=== PATIENT | male | born 1970 | race Caucasian/White ===

== ENCOUNTER 2024-08-01 18:09 | Emergency (ER) | payer MEDICAID ==
[~2024-08-01] VITALS: Ht 170.2 cm; Wt 70.5 kg
[2024-08-01 18:19] VITALS: BP 116/81; PULSE 111; RESP 16; TEMP 98.6; O2SAT 99
== END 2024-08-01 20:54 | disposition left against medical advice (07) ==
LOC: ER 18:10
DX: Z93.3 Colostomy status (principal)
CPT/HCPCS: 99281; A4421

== ENCOUNTER 2024-09-10 04:47 | Emergency (ER) | payer MEDICAID ==
[~2024-09-10] VITALS: Ht 170.2 cm; Wt 71.6 kg
[2024-09-10 04:52] VITALS: BP 127/75; PULSE 86; RESP 16; TEMP 97.9; O2SAT 98
== END 2024-09-10 05:58 | disposition home or self-care (01) ==
LOC: ER 04:48
DX: Z93.3 Colostomy status (principal); Z43.3 Encounter for attention to colostomy
CPT/HCPCS: 99281; A4421

== ENCOUNTER 2024-09-13 21:17 | Emergency (ER) | payer MEDICAID ==
[~2024-09-13] VITALS: Ht 170.2 cm; Wt 60.4 kg
[2024-09-13 21:26] VITALS: BP 104/75; PULSE 91; RESP 15; TEMP 96.8; O2SAT 100
== END 2024-09-13 22:34 | disposition home or self-care (01) ==
LOC: ER 21:17
DX: Z93.3 Colostomy status (principal)
CPT/HCPCS: 99281

== ENCOUNTER 2024-10-08 12:47 | Emergency (ER) | payer MEDICAID ==
[~2024-10-08] VITALS: Ht 170.2 cm; Wt 68.5 kg
[2024-10-08 13:00] VITALS: BP 127/74; PULSE 75; RESP 18; TEMP 97.8; O2SAT 99
== END 2024-10-08 15:08 | disposition home or self-care (01) ==
LOC: ER 12:48
DX: Z43.3 Encounter for attention to colostomy (principal)
CPT/HCPCS: 99281

== ENCOUNTER 2024-10-14 02:55 | Emergency (ER) | payer MEDICAID ==
[~2024-10-14] VITALS: Ht 170.2 cm; Wt 71.4 kg
[2024-10-14 02:57] VITALS: BP 144/78; PULSE 94; RESP 18; TEMP 98.1; O2SAT 99
--- NOTE | 2024-10-14 03:04 | Physician Documentation ---
History of Present Illness ~ General Chief Complaint: See Chief Complaint Stated Complaint: NEED COLOSTOMY BAG Time Seen by MD: 03:04 Primary Medical Doctor: NONE History of Present Illness Initial Comments 54-year-old male, history of colon cancer status post colostomy and chemo, presenting requesting a new colostomy bag and supplies. He tells me that he reordered supplies, but they did not come yet and now he was in the weekend. His bag is coming off and he tried taping it to hold it on, and states it for the past day he has been literally holding it with his hand to keep the bag from falling off. He finally decided to come here to get supplies. He denies any other symptoms, his colostomy is functioning normal, no abdominal pain or other symptoms. Medication Reconciliation Allergies: Coded Allergies: No Known Allergies (Unverified , 10/14/24) Past Medical History Past Medical History: *GI/HEPATOBILIARY* Past Surgical History: other Review of Systems Constitutional: Denies: fever Gastrointestinal: Denies: abdominal pain Physical Exam Physical Exam Vital Signs: Temperature: 98.1, Source: Oral, Heart Rate: 94, Respiratory Rate: 18, BP: 144/78, Pulse Oximetry: 99, Weight: 71.360 Physical Exam General: This is a pleasant and well-appearing middle-aged man Heart: Mild tachycardic, appears regular Lungs: normal work of breathing, normal oxygen saturation on room air Abdomen: Soft, nondistended, nontender. In the left abdominal wall there is a colostomy with a colostomy bag that appears to be held to the skin with duct tape Psychiatric: Calm and cooperative with exam Progress Results/Orders Results/Orders Vital Signs 10/14/24 02:57 Temp 98.1 Pulse 94 Resp 18 B/P (MAP) 144/78 Pulse Ox 99 Medical Decision Making Assessment The patient presents requesting supplies for his colostomy. He has no other concerning symptoms or findings on exam to warrant any further workup or testing. He was given colostomy supplies and will be discharged. Departure Time of Disposition: 03:13 Disposition: 01 HOME / SELF CARE / HOMELESS Impression: Primary Impression: Colostomy care Condition: Improved Discharge Instructions: Colostomy Home Guide, Adult Referrals: NO PRIMARY CARE PROVIDER (PCP) Education Educated: Patient Educated regarding: need for follow up Signature Scribe Signature: na Attestation: PADMA Rob MD Oct 14, 2024 03:04
[2024-10-15] MEDS ORDERED: GABA-530 PO (05:46)
== END 2024-10-14 03:34 | disposition home or self-care (01) ==
LOC: ER 02:55
DX: Z43.3 Encounter for attention to colostomy (principal); Z85.038 Personal history of other malignant neoplasm of large intestine
CPT/HCPCS: 99281; A4421

== ENCOUNTER 2024-10-15 04:11 | Emergency (ER) | payer MEDICAID ==
[~2024-10-15] VITALS: Ht 170.2 cm; Wt 72.0 kg
--- NOTE | 2024-10-15 05:38 | Physician Documentation ---
History of Present Illness Chief Complaint: Abdominal Pain Stated Complaint: OUT OF COLOSTOMY BAG Time Seen by MD: 05:37 OK to notify your PCP?: Yes Primary Medical Doctor: NONE Source: patient, RN/MD, EMS, RN notes reviewed, EMS notes reviewed, old records Mode of Arrival: EMS Exam Limitations: no limitations HPI 54 year old male with history of diabetes presents to the emergency department via EMS for complaints of colostomy issues. Patient has a present colostomy bag due to a cancer surgery he had performed by Dr. Sainz. He is complaining of pain around his colostomy site. He states that it has a cut and is getting infected. He also stated that his bags keep falling off. Additionally he is complaining of neuropathy. He has not spoken about it to his Dr. Cantu and states he has no primary care provider and is taking no medication. Of note, he was seen here on 10/14/2024 for the same complaints. Medication Reconciliation Allergies: Coded Allergies: No Known Allergies (Unverified , 10/14/24) Scheduled Gabapentin (Gabapentin), 1 CAP PO Q8H Past Medical History Past Medical History: *GI/HEPATOBILIARY* Past Surgical History: other Review of Systems All Other Systems at this time: Reviewed and Negative ROS As stated above in the HPI, otherwise all systems are reviewed and negative. Physical Exam Vital Signs: RN Vital Signs have been reviewed: Yes, Temperature: 98.0, Source: Oral, Heart Rate: 89, Respiratory Rate: 18, BP: 120/87, Pulse Oximetry: 100, Weight: 72.000 Pulse Oximetry Reflects: adequate oxygenation Physical Exam Pe: General: This is a pleasant and well-appearing middle-aged man Heart: Mild tachycardic, appears regular Lungs: normal work of breathing, normal oxygen saturation on room air Abdomen: Soft, nondistended, nontender. In the left abdominal wall there is a colostomy with a colostomy bag that appears to be held to the skin with duct tape Nuero: Tingling of lower extremities Psychiatric: Calm and cooperative with exam Progress Results/Orders Reviewed/noted all lab results: Yes Results/Orders Vital Signs 10/15/24 10/15/24 04:15 04:22 Temp 98.0 Pulse 89 Resp 16 18 B/P (MAP) 120/87 Pulse Ox 100 Re-Evaluation Re-Evaluation : Re-Evaluation: Improved Progress Patient was seen and examined. Patient was given reassurance. The patient has a colorectal surgeon in his scheduled to see him in two months but he has been having problems with his colostomy. Colostomy care was provided. There was no excessive erosions. Around the abdomen. Patient is complaining that he was al so having neuropathy as well. The patient has had gabapentin in the past. He was given additional dose and started. He received a prescription of 100 mg t.i.d. but a loading dose of 400 in the ER. Patient will follow up with his colorectal surgeon. Medical Decision Making Additional info obtained from: old records Differential Dx:Considerations: Include: Hernia, Inflammatory BD, Ischemic bowel, Other Departure Time of Disposition: 05:47 Disposition: HOME / SELF CARE / HOMELESS Impression: Primary Impression: Colostomy care Additional Impression: Neuropathy Condition: Stable Discharge Instructions: Colostomy Home Guide, Adult Referrals: NO PRIMARY CARE PROVIDER (PCP) Prescriptions Gabapentin (Gabapentin) 100 Mg Capsule 1 CAP PO Q8H for 30 Days, #90 CAP 0 Refills Prov: NYDIA DIAZ MD 10/15/24 Education Educated: Patient Educated regarding: diagnosis, need for follow up Signature Scribe Signature: Scribed for Nydia Diaz MD by Caitlyn Cantu . 10/15/24 05:48 Attestation: The note accurately reflects work and decisions made by me.Nydia Diaz MD 10/15/24 05:38 NYDIA DIAZ MD Oct 15, 2024 05:38 CAITLYN LAYTON Oct 15, 2024 05:48
[2024-10-15] MEDS ORDERED: gabapentin 400mg capsule PO STA (05:44)
[2024-10-15] MEDS ORDERED: GABA-530 PO (05:46)
[2024-10-15 06:05] VITALS: BP 130/80; PULSE 78; RESP 16; TEMP 87; O2SAT 100
== END 2024-10-15 06:07 | disposition home or self-care (01) ==
LOC: ER 04:11
DX: Z43.3 Encounter for attention to colostomy (principal); E11.40 Type 2 diabetes mellitus with diabetic neuropathy, unspecified
CPT/HCPCS: 99283; A4371

== ENCOUNTER 2024-10-17 07:33 | Emergency (ER) | payer MEDICAID ==
[~2024-10-17] VITALS: Ht 170.2 cm; Wt 72.7 kg
[~2024-10-17 07:33] MED LIST: GABA-530 PO
[2024-10-17 07:34] VITALS: BP 142/80; PULSE 88; RESP 16; O2SAT 98
--- NOTE | 2024-10-17 07:45 | Physician Documentation ---
HPI ~ General Chief Complaint: Medication Request Stated Complaint: NEEDING COLOSTOMY BAG Time Seen by MD: 07:42 Primary Medical Doctor: NONE History of Present Illness HPI Comments 54-year-old male presenting for a colostomy bag replacement. Patient has history of colon cancer which was treated and a colostomy was placed. He states that he just needs a bag and is trying to get septic scheduled with social security specialist and his primary care provider so he get these bags ordered so he does not have to come to the emergency department every time. No other complaints. Medication Reconciliation Allergies: Coded Allergies: No Known Allergies (Unverified , 10/14/24) Scheduled Gabapentin (Gabapentin), 1 CAP PO Q8H Past Medical History Past Medical History: *GI/HEPATOBILIARY*, Colon Cancer Past Surgical History: other Review of Systems All Other Systems at this time: Reviewed and Negative Physical Exam Physical Exam Vital Signs: Temperature: 98.0, Source: Temporal, Heart Rate: 88, Respiratory Rate: 16, BP: 142/80, Pulse Oximetry: 98, Weight: 72.730 Oxygen Flow Rate: 0 Physical Exam I have reviewed the triage vitals. CONST: Well developed and well nourished. In no acute distress HENT: Head Atraumatic EYES: Pupils are equal, round and reactive to light. Normal conjunctiva NECK: Normal range of motion. Supple. CARDIO: Normal rate and regular rhythm. No murmurs, rubs, or gallops. S1, S2. PULM/CHEST: No respiratory distress. Lungs clear to auscultation. No wheeze ABD: Colostomy on left side of abdomen.. : Exam deferred MSK: No edema. No deformity. NEURO: Alert and oriented to person, place and time. Moving all extremities SKIN: Warm and dry. PSYCH: Normal mood and affect. Good eye contact. Progress Results/Orders Results/Orders Vital Signs 10/17/24 07:34 Temp 98.0 Pulse 88 Resp 16 B/P (MAP) 142/80 Pulse Ox 98 O2 Flow Rate 0 Medical Decision Making Additional Comment Colostomy bag was replaced. Patient will follow up with his primary care physician and social sciences chair. Return to the ED with any acutely worsening symptoms. Departure Disposition: 01 HOME / SELF CARE / HOMELESS Impression: Primary Impression: Colostomy care Condition: Stable Referrals: NO PRIMARY CARE PROVIDER (PCP) Signature Scribe Signature: 1 Attestation: 1 SKYLAR XIE MD October 17, 2024 07:45
[2024-10-17 07:47] VITALS: TEMP 98
== END 2024-10-17 07:48 | disposition home or self-care (01) ==
LOC: ER 07:33
DX: Z93.3 Colostomy status (principal); Z85.038 Personal history of other malignant neoplasm of large intestine; Z79.899 Other long term (current) drug therapy
CPT/HCPCS: 99281; A4421

== ENCOUNTER 2024-10-21 08:57 | Emergency (ER) | payer MEDICAID ==
[~2024-10-21] VITALS: Ht 170.2 cm; Wt 70.0 kg
[2024-10-21 08:59] VITALS: TEMP 97.1
--- NOTE | 2024-10-21 09:24 | Physician Documentation ---
History of Present Illness ~ Chief Complaint: See Chief Complaint Stated Complaint: MEDICAL SUPPLIES Time Seen by MD: 09:09 Primary Medical Doctor: NONE HPI Patient is seen today with complaints of needing new colostomy supplies. Patient states he had surgery and colostomy placed about seven months ago and states he has not yet gotten a primary care in his not gotten in with any type of [employer]. Patient has no other concern or complaint at this time. He denies any abdominal pain, chest pain, nausea, vomiting, diarrhea or shortness of breath. Medication Reconciliation Allergies: Coded Allergies: No Known Allergies (Unverified , 10/14/24) Scheduled Gabapentin (Gabapentin), 1 CAP PO Q8H Past Medical History Past Medical History: *GI/HEPATOBILIARY*, Colon Cancer Past Surgical History: other Review of Systems Constitutional: Denies: chills, fever, weakness Eyes: Denies: pain, blurred vision ENT: Denies: ear pain, nose pain, throat pain, mouth pain Respiratory: Denies: cough, shortness of breath Cardiovascular: Denies: chest pain, palpitations Gastrointestinal: Denies: abdominal pain, nausea, vomiting Genitourinary: Denies: burning, dysuria Male Genitalia: Denies: penile discharge, testicular pain Neurological: Denies: headache, dizziness Musculoskeletal: Denies: pain, swelling Integumentary: Denies: rash, lesions Allergic/Immunologic: Denies: hives, itching Hematologic/Lymphatic: Denies: no symptoms reported Psychiatric: Denies: depression, anxiety Physical Exam Vital Signs: Temperature: 97.1, Source: Temporal, Heart Rate: 98, Respiratory Rate: 15, BP: 115/71, Pulse Oximetry: 98, Weight: 70.000 Physical Exam General: Awake and Alert, no acute distress. HEENT: Conjunctiva pink, Sclera clear, Mucus Membranes moist. Neck: Supple without masses and tenderness. Resp: Unlabored. Lungs clear to auscultation bilaterally. Heart: Regular Rate and rhythm, normal S1 and S2 without murmur, rub or gallop. Abdomen: Patient has colostomy present. Soft and non tender no organomegaly Extremities: No cyanosis,clubbing or edema. Skin: Warm and Dry. Progress Results/Orders Results/Orders Vital Signs 10/21/24 10/21/24 08:59 10:32 Temp 97.1 Pulse 98 83 Resp 15 15 B/P (MAP) 115/71 100/65 (77) Pulse Ox 98 97 Medical Decision Making Findings Patient is seen today with complaints of needing new colostomy supplies. Patient states he had surgery and colostomy placed about seven months ago and states he has not yet gotten a primary care in his not gotten in with any type of durable medical equipment company. Patient has no other concern or complaint at this time. He denies any abdominal pain, chest pain, nausea, vomiting, diarrhea or shortness of breath. Departure Disposition: 01 HOME / SELF CARE / HOMELESS Impression: Primary Impression: Colostomy care Additional Impression: General medical exam Condition: Improved Discharge Instructions: Colostomy Home Guide, Adult Additional Instructions: Patient is seen today with complaints of needing new colostomy supplies. Patient states he had surgery and colostomy placed about seven months ago and states he has not yet gotten a primary care in his not gotten in with any type of [employer] medical equipment company. Patient has no other concern or complaint at this time. He denies any abdominal pain, chest pain, nausea, vomiting, diarrhea or shortness of breath. Referrals: NO PRIMARY CARE PROVIDER (PCP) Signature Scribe Signature: No scribe Attestation: No scribe ANA KOHLER PAC October 21, 2024 09:24
[2024-10-21 10:32] VITALS: BP 100/65; PULSE 83; RESP 15; O2SAT 97
== END 2024-10-21 11:22 | disposition home or self-care (01) ==
LOC: ER 08:57
DX: Z43.3 Encounter for attention to colostomy (principal); Z85.038 Personal history of other malignant neoplasm of large intestine; Z79.899 Other long term (current) drug therapy
CPT/HCPCS: 99284; A4421; A6449

== ENCOUNTER 2024-10-24 13:28 | Emergency (ER) | payer MEDICAID ==
[~2024-10-24] VITALS: Ht 170.2 cm; Wt 67.3 kg
[2024-10-24 13:42] VITALS: BP 120/77; PULSE 89; RESP 16; O2SAT 99
--- NOTE | 2024-10-24 16:22 | Physician Documentation ---
History of Present Illness ~ General Chief Complaint: See Chief Complaint Stated Complaint: CALOSCOMY BAG ISSUES Time Seen by MD: 14:42 Primary Medical Doctor: NONE Source: patient, RN/MD History of Present Illness Initial Comments Patient is seen today stating that he needs more supplies for his colostomy bag. Patient denies any abdominal pain. Patient has no other concern or complaint at this time. Patient denies any chest pain, shortness of breath, nausea, vomiting, diarrhea or abdominal pain. Medication Reconciliation Allergies: Coded Allergies: No Known Allergies (Unverified , 10/14/24) Scheduled Gabapentin (Gabapentin), 1 CAP PO Q8H Past Medical History Past Medical History: *GI/HEPATOBILIARY*, Colon Cancer Past Surgical History: other Smoking Status: Current every day smoker Review of Systems Constitutional: Denies: chills, fever, weakness Eyes: Denies: pain, blurred vision ENT: Denies: ear pain, nose pain, throat pain, mouth pain Respiratory: Denies: cough, shortness of breath Cardiovascular: Denies: chest pain, palpitations Gastrointestinal: Denies: abdominal pain, nausea, vomiting Genitourinary: Denies: burning, dysuria Male Genitalia: Denies: penile discharge, testicular pain Neurological: Denies: headache, dizziness Musculoskeletal: Denies: pain, swelling Integumentary: Denies: rash, lesions Allergic/Immunologic: Denies: hives, itching Hematologic/Lymphatic: Denies: no symptoms reported Psychiatric: Denies: depression, anxiety Physical Exam Physical Exam Vital Signs: Temperature: 98.0, Source: Temporal, Heart Rate: 89, Respiratory Rate: 16, BP: 120/77, Pulse Oximetry: 99, Weight: 67.300 Oxygen Flow Rate: 0 Physical Exam General: Awake and Alert, no acute distress. HEENT: Conjunctiva pink, Sclera clear, Mucus Membranes moist. Neck: Supple without masses and tenderness. Resp: Unlabored. Lungs clear to auscultation bilaterally. Heart: Regular Rate and rhythm, normal S1 and S2 without murmur, rub or gallop. Abdomen: Patient has colostomy in place. Soft and non tender no organomegaly Extremities: No cyanosis,clubbing or edema. Skin: Warm and Dry. Progress Results/Orders Results/Orders Vital Signs 10/24/24 13:42 Temp 98.0 Pulse 89 Resp 16 B/P (MAP) 120/77 Pulse Ox 99 O2 Flow Rate 0 Medical Decision Making Findings Patient is seen today stating that he needs more supplies for his colostomy bag. Patient denies any abdominal pain. Patient has no other concern or complaint at this time. Patient denies any chest pain, shortness of breath, nausea, vomiting, diarrhea or abdominal pain. Patient was given colostomy supplies. Patient will establish care with primary care so he can get durable medical equipment through a specific company. Patient will return to ED with any worsening, concerning or changing symptoms. Departure Disposition: HOME / SELF CARE / HOMELESS Impression: Primary Impression: Colostomy care Condition: Improved Discharge Instructions: Colostomy Home Guide, Adult Additional Instructions: Patient was given colostomy supplies. Patient will establish care with primary care so he can get durable medical equipment through a specific company. Patient will return to ED with any worsening, concerning or changing symptoms. Referrals: NO PRIMARY CARE PROVIDER (PCP) Signature Scribe Signature: No scribe Attestation: No scribe ANA KOHLER PAC October 24, 2024 16:22
[2024-10-24 16:24] VITALS: TEMP 98
== END 2024-10-24 16:32 | disposition home or self-care (01) ==
LOC: ER 13:29
DX: Z43.3 Encounter for attention to colostomy (principal); F17.200 Nicotine dependence, unspecified, uncomplicated; Z85.038 Personal history of other malignant neoplasm of large intestine; Z79.899 Other long term (current) drug therapy
CPT/HCPCS: 99281; A4421

== ENCOUNTER 2024-10-28 12:05 | Emergency (ER) | payer MEDICAID ==
[~2024-10-28] VITALS: Ht 172.7 cm; Wt 67.0 kg
[2024-10-28 12:24] VITALS: BP 109/77; PULSE 95; RESP 18; TEMP 97.5; O2SAT 99
--- NOTE | 2024-10-28 13:37 | Physician Documentation ---
HPI ~ General Chief Complaint: See Chief Complaint Stated Complaint: COLOSOMY COMPLICATIONS Time Seen by MD: 13:14 OK to notify your PCP?: No Primary Medical Doctor: NONE History of Present Illness HPI Comments Is requesting colostomy supplies. Denies any other complaints states that his stoma has been functioning appropriately. Without Medications Since: October 28, 2024 Medication Reconciliation Allergies: Coded Allergies: No Known Allergies (Unverified , 10/14/24) Scheduled Gabapentin (Gabapentin), 1 CAP PO Q8H Past Medical History Past Medical History: *GI/HEPATOBILIARY*, Colon Cancer Past Surgical History: other Review of Systems All Other Systems at this time: Reviewed and Negative ROS As stated above in the HPI, otherwise all systems are reviewed and negative. Physical Exam Physical Exam Vital Signs: Temperature: 97.5, Source: Temporal, Heart Rate: 95, Respiratory Rate: 18, BP: 109/77, Pulse Oximetry: 99, Weight: 67.050 Physical Exam General: Alert, no apparent distress. Respiratory: Lungs clear, no respiratory distress. Cardiovascular: Regular rate and rhythm, no murmurs. Gastrointestinal: Soft, nontender, nondistended. Bowels sounds present. stoma, no signs of infection Neurologic: Oriented x4. Psychiatric: Normal mood and affect. Skin: Normal color, warm and dry. No edema, no ecchymosis. Progress Results/Orders Results/Orders Vital Signs 10/28/24 12:24 Temp 97.5 Pulse 95 Resp 18 B/P (MAP) 109/77 Pulse Ox 99 Departure Disposition: 01 HOME / SELF CARE / HOMELESS Impression: Primary Impression: Colostomy care Condition: Improved Discharge Instructions: Colostomy Home Guide, Adult Referrals: NO PRIMARY CARE PROVIDER (PCP) Education Educated: Patient Educated regarding: diagnosis Signature Scribe Signature: f Attestation: The note accurately reflects work and decisions made by me.Gino De Leon NP 10/28/24 18:29 GINO VELASCO NP October 28, 2024 13:37
== END 2024-10-28 13:52 | disposition home or self-care (01) ==
LOC: ER 12:06
DX: Z43.3 Encounter for attention to colostomy (principal); Z85.038 Personal history of other malignant neoplasm of large intestine; Z79.899 Other long term (current) drug therapy
CPT/HCPCS: 99281; A4371; A4398; A4421

== ENCOUNTER 2024-11-01 21:25 | Emergency (ER) | payer MEDICAID ==
[~2024-11-01] VITALS: Ht 170.2 cm; Wt 70.5 kg
[2024-11-01 21:40] VITALS: TEMP 98.1
[2024-11-01 22:23] VITALS: BP 111/75; PULSE 83; RESP 16; O2SAT 96
--- NOTE | 2024-11-01 22:29 | Physician Documentation ---
History of Present Illness ~ General Chief Complaint: See Chief Complaint Stated Complaint: MED SUPPLIES Time Seen by MD: 22:18 Primary Medical Doctor: NONE Mode of Arrival: Ambulatory History of Present Illness Initial Comments 54 year old male here for ostomy supplies. Also reports that his stoma is prolapsing but easily reducible. Stoma is productive. Reports intermittent abdominal pain, but denies pain at this time. Medication Reconciliation Allergies: Coded Allergies: No Known Allergies (Unverified , 11/01/24) Scheduled Gabapentin (Gabapentin), 1 CAP PO Q8H Past Medical History Past Medical History: *GI/HEPATOBILIARY*, Colon Cancer Past Surgical History: other Review of Systems All Other Systems at this time: Reviewed and Negative Physical Exam Physical Exam Vital Signs: RN Vital Signs have been reviewed: Yes, Temperature: 98.1, Heart Rate: 83, Respiratory Rate: 16, BP: 111/75, Pulse Oximetry: 96, Weight: 70.450 Oxygen Flow Rate: 0 Physical Exam HEENT: PERRL, moist oral mucosa, EOMI Pulmonary: No respiratory distress GI: nondistended, soft, nontender, no guarding, no rebound, ostomy site p/p/p MSK: no deformity Skin: w/d/i, no rash Neuro: alert, nonfocal Psych: normal affect Progress Results/Orders Results/Orders Orders - ELIAS BOLTON MD General Nursing Order (11/01/24 22:40) Vital Signs 11/01/24 11/01/24 11/01/24 21:40 22:19 22:23 Temp 98.1 Pulse 98 83 Resp 17 16 16 B/P (MAP) 155/84 111/75 (87) Pulse Ox 99 96 O2 Flow Rate 0 Medical Decision Making Findings 54 year old male mainly here for ostomy supplies. Provided. Unremarkable exam. Counseled return precautions. Differential Diagnosis Ddx = ostomy malfunction, bowel obstruction, UTI Departure Disposition: HOME / SELF CARE / HOMELESS Impression: Primary Impression: Colostomy care Condition: Stable Referrals: NO PRIMARY CARE PROVIDER (PCP) Education Educated: Patient Educated regarding: diagnosis, treatment, prognosis, need for follow up Signature Scribe Signature: . Attestation: . ELIAS BOLTON MD November 01, 2024 22:29
== END 2024-11-01 23:12 | disposition home or self-care (01) ==
LOC: ER 21:25
DX: Z43.3 Encounter for attention to colostomy (principal); Z79.899 Other long term (current) drug therapy; Z85.038 Personal history of other malignant neoplasm of large intestine
CPT/HCPCS: 99281

== ENCOUNTER 2025-01-20 11:57 | Emergency (ER) | payer MEDICAID ==
[~2025-01-20] VITALS: Ht 170.2 cm; Wt 65.7 kg
[2025-01-20 12:00] VITALS: BP 150/84; PULSE 100; RESP 18; TEMP 97.8; O2SAT 100
== END 2025-01-20 14:40 | disposition left against medical advice (07) ==
LOC: ER 11:58
DX: Z93.3 Colostomy status (principal); Z53.21 Procedure and treatment not carried out due to patient leaving prior to being seen by health care provider

== ENCOUNTER 2025-02-04 21:21 | Emergency (ER) | payer MEDICAID | END 2025-02-04 23:07 | disposition left against medical advice (07) | LOC: ER 21:22 | DX: Z00.00 Encounter for general adult medical examination without abnormal findings (principal); Z53.21 Procedure and treatment not carried out due to patient leaving prior to being seen by health care provider ==

== ENCOUNTER 2025-02-05 20:58 | Emergency (ER) | payer MEDICAID | END 2025-02-05 22:26 | disposition left against medical advice (07) | LOC: ER 20:58 | DX: Z00.00 Encounter for general adult medical examination without abnormal findings (principal); Z53.21 Procedure and treatment not carried out due to patient leaving prior to being seen by health care provider ==

== ENCOUNTER 2025-02-12 17:42 | Emergency (ER) | payer MEDICAID ==
[~2025-02-12] VITALS: Ht 172.7 cm; Wt 70.5 kg
[2025-02-12 18:28] VITALS: BP 125/75; PULSE 85; RESP 16; O2SAT 100
--- NOTE | 2025-02-12 19:29 | Physician Documentation ---
HPI ~ General Chief Complaint: See Chief Complaint Stated Complaint: OSTOMY BAG Time Seen by MD: 19:03 Primary Medical Doctor: NONE History of Present Illness HPI Comments 54-year-old male patient presenting to the ED requesting colostomy supplies. Denies any abdominal pain or concerns regarding his ostomy. States that he is attempting to establish with a primary care in order to obtain ongoing supplies Medication Reconciliation Allergies: Coded Allergies: No Known Allergies (Unverified , 02/12/25) Scheduled Gabapentin (Gabapentin), 1 CAP PO Q8H Past Medical History Past Medical History: *GI/HEPATOBILIARY*, Colon Cancer Past Surgical History: other Review of Systems All Other Systems at this time: Reviewed and Negative ROS As stated above in the HPI, otherwise all systems are reviewed and negative. Physical Exam Physical Exam Vital Signs: Temperature: 98.3, Source: Temporal, Heart Rate: 85, Respiratory Rate: 16, BP: 125/75, Pulse Oximetry: 100, Weight: 70.450 Oxygen Flow Rate: 0 Physical Exam Respiratory: Lungs clear, no respiratory distress. Cardiovascular: Regular rate and rhythm, no murmurs. Gastrointestinal: Soft, nontender, nondistended. Bowels sounds present. ostomy. Neurologic: Oriented x4. Psychiatric: Normal mood and affect. Skin: Normal color, warm and dry. No edema, no ecchymosis. Progress Results/Orders Results/Orders Orders - GINO VELASCO NP General Nursing Order (02/12/25 ) Vital Signs 02/12/25 02/12/25 18:28 19:36 Temp 98.3 98.3 Pulse 85 Resp 16 B/P (MAP) 125/75 Pulse Ox 100 O2 Flow Rate 0 Medical Decision Making Findings Patient was provided a colostomy supplies as request Differential Dx:Considerations: Include: Adverse circumstances, Economic, Psychosocial, Medical services unavail., Medication refill, Medication non- compliance, Other Departure Disposition: 01 HOME / SELF CARE / HOMELESS Impression: Primary Impression: Colostomy care Condition: Improved Referrals: NO PRIMARY CARE PROVIDER (PCP) Signature Scribe Signature: f Attestation: Scribed for Gino Velasco Quality Control Microbiology Supervisor by Gino De Leon NP . 02/12/25 23:06 GINO VELASCO NP Feb 12, 2025 19:29
[2025-02-12 19:36] VITALS: TEMP 98.3
== END 2025-02-12 19:39 | disposition home or self-care (01) ==
LOC: ER 17:43
DX: Z43.3 Encounter for attention to colostomy (principal); Z85.038 Personal history of other malignant neoplasm of large intestine; Z79.899 Other long term (current) drug therapy
CPT/HCPCS: 99281; A4421

== ENCOUNTER 2025-02-18 23:20 | Emergency (ER) | payer MEDICAID ==
[~2025-02-18] VITALS: Ht 170.2 cm; Wt 69.1 kg
[2025-02-18 23:30] VITALS: BP 141/87; PULSE 99; RESP 16; TEMP 98.2; O2SAT 99
--- NOTE | 2025-02-18 23:49 | Physician Documentation ---
History of Present Illness General Chief Complaint: See Chief Complaint Stated Complaint: REQUESTING COLOSTOMY BAG Time Seen by MD: 23:49 Primary Medical Doctor: NONE History of Present Illness Initial Comments This is a 54-year-old male with a history of colostomy who presents requesting colostomy bag as the one he has on is falling off and has run out of replacement supplies. Patient reports feels otherwise well and reports no other acute symptoms or concerns. Medication Reconciliation Allergies: Coded Allergies: No Known Allergies (Unverified , 02/12/25) Scheduled Gabapentin (Gabapentin), 1 CAP PO Q8H Past Medical History Past Medical History: *GI/HEPATOBILIARY*, Colon Cancer Past Surgical History: other Review of Systems ROS As stated above in the HPI, otherwise all systems are reviewed and negative. Physical Exam Physical Exam Vital Signs: Temperature: 98.2, Heart Rate: 99, Respiratory Rate: 16, BP: 141/87, Pulse Oximetry: 99, Weight: 69.090 Oxygen Flow Rate: 0 Physical Exam VITALS: Reviewed and as above. GENERAL: Alert and oriented x4, nontoxic appearing, no apparent distress. RESPIRATORY: No increased work of breathing, no respiratory distress, speaking in full clear sentences Progress Results/Orders Results/Orders Vital Signs 02/18/25 23:30 Temp 98.2 Pulse 99 Resp 16 B/P (MAP) 141/87 Pulse Ox 99 O2 Flow Rate 0 Medical Decision Making Findings This 54-year-old male presented requesting replacement ostomy supplies, he had no other acute symptoms or concerns physical exam benign without findings. Patient provided ostomy supplies by nursing staff. Patient is appropriate for outpatient follow up. Differential Diagnosis Cellulitis, ostomy infection, abdominal pain, Departure Time of Disposition: 23:48 Disposition: 01 HOME / SELF CARE / HOMELESS Impression: Primary Impression: Colostomy care Condition: Improved Additional Instructions: Please follow up with you primary care provider for continued prescription for ostomy supplies. Please follow up with your primary care provider in the next few days. Please return to the emergency department for any new or worsening concerning symptoms. Referrals: NO PRIMARY CARE PROVIDER (PCP) Education Educated: Patient Educated regarding: diagnosis, treatment, prognosis, need for follow up Signature Scribe Signature: No scribe Attestation: The note accurately reflects work and decisions made by me.THOMAS Urena 02/18/25 23:49 YARIEL SULLIVAN Feb 18, 2025 23:49
== END 2025-02-19 02:20 | disposition home or self-care (01) ==
LOC: ER 23:22
DX: Z43.3 Encounter for attention to colostomy (principal)
CPT/HCPCS: 99281

== ENCOUNTER 2025-03-06 22:20 | Emergency (ER) | payer MEDICAID ==
[~2025-03-06] VITALS: Ht 172.7 cm; Wt 63.6 kg
[2025-03-06 22:40] VITALS: BP 113/70; PULSE 88; RESP 22; TEMP 98; O2SAT 100
--- NOTE | 2025-03-06 23:49 | Physician Documentation ---
History of Present Illness Chief Complaint: See Chief Complaint Stated Complaint: MED REQUEST Time Seen by MD: 23:40 Primary Medical Doctor: NONE HPI Patient 54-year-old male that presents to the emergency department for colostomy supplies. Patient reports that he was seen at [facility] yesterday and received 2 ostomy bags but they were too large for his ostomy nose unable to use them. Patient reports no issues with his ostomy currently other than needing to replace the bag. Patient reports that he will apply the ostomy bags himself in the restroom. Medication Reconciliation Allergies: Coded Allergies: No Known Allergies (Unverified , 02/12/25) Scheduled Gabapentin (Gabapentin), 1 CAP PO Q8H Past Medical History Past Medical History: *GI/HEPATOBILIARY*, Colon Cancer Past Surgical History: other Review of Systems ROS As stated above in the HPI, otherwise all systems are reviewed and negative. Physical Exam Vital Signs: Temperature: 98.0, Heart Rate: 88, Respiratory Rate: 22, BP: 113/70, Pulse Oximetry: 100, Weight: 63.600 Oxygen Flow Rate: 0 Physical Exam VITALS: Reviewed and as above. GENERAL: Alert, no apparent distress. HEENT: Normocephalic, atraumatic, PERRL, EOMI, dry mucosa, no erythema RESPIRATORY: Lungs clear, normal breath sounds, no respiratory distress. CHEST: No accessory muscle use, no retractions CV: Regular rate, rhythm, no edema, no murmur, No: JVD GI: Soft, non-tender, bowels sounds present, no rebound, guarding, or rigidity BACK: No CVA tenderness, or swelling MUSCULOSKELETAL No deformities, no edema SKIN: Warm and dry, no rash, colostomy noted, ostomy site appropriate. NEURO: Oriented x4, No motor or sensory deficit PSYCH: Normal mood and affect, no agitation Progress Results/Orders Results/Orders Vital Signs 03/06/25 22:40 Temp 98.0 Pulse 88 Resp 22 B/P (MAP) 113/70 Pulse Ox 100 O2 Flow Rate 0 Medical Decision Making Findings Reported to the emergency department for ostomy supplies. Patient was supplied with 2 ostomy bags. Patient will follow up with his primary care provider if he needs any additional assistance. Patient will return to the emergency department if he has any worsening of his current symptoms or any additional concerning symptoms that we discussed here today. Differential Dx:Considerations: Include: AAA, Angina/TN, Aortic dissection, Appendicitis, Bowel obstruction, Cholangitis, Cholelithasis, Constipation, Diverticular disease, Esophageal rupture, Esophagitis, Gastritis/PUD, Gastroenteritis, GI hemorrhage, Hernia, Hepatitis, Inflammatory BD, Ischemic bowel, Pancreatitis, Porphyria, Testicular torsion, Trauma, intraabdominal, Urinary obstruction, Urinary tract infection, Urolithiasis, Other Departure Disposition: 01 HOME / SELF CARE / HOMELESS Impression: Primary Impression: Colostomy care Additional Impression: General medical exam Condition: Stable Discharge Instructions: Colostomy Home Guide, Adult Additional Instructions: Reported to the emergency department for ostomy supplies. Patient was supplied with 2 ostomy bags. Patient will follow up with his primary care provider if he needs any additional assistance. Patient will return to the emergency department if he has any worsening of his current symptoms or any additional concerning symptoms that we discussed here today. Referrals: NO PRIMARY CARE PROVIDER (PCP) Education Educated: Patient Educated regarding: diagnosis, treatment, need for follow up Signature Scribe Signature: A Attestation: Scribed for Soy Morales by THOMAS Crouch . 03/06/25 23:49 SOY MORALES Mar 06, 2025 23:49
== END 2025-03-06 23:54 | disposition home or self-care (01) ==
LOC: ER 22:21
DX: Z00.00 Encounter for general adult medical examination without abnormal findings (principal); Z43.3 Encounter for attention to colostomy; Z85.038 Personal history of other malignant neoplasm of large intestine; Z79.899 Other long term (current) drug therapy
CPT/HCPCS: 99281; A4421

== ENCOUNTER 2025-03-20 04:14 | Emergency (ER) | payer MEDICAID ==
[~2025-03-20] VITALS: Ht 172.7 cm; Wt 70.0 kg
[2025-03-20 04:28] VITALS: BP 131/80; PULSE 89; RESP 18; TEMP 97.1; O2SAT 100
--- NOTE | 2025-03-20 04:49 | Physician Documentation ---
History of Present Illness ~ General Chief Complaint: See Chief Complaint Stated Complaint: CATHETER COMPLICATIONS Time Seen by MD: 04:47 Primary Medical Doctor: NONE History of Present Illness Initial Comments Patient is here as he needs a urostomy bag. No other complaints Medication Reconciliation Allergies: Coded Allergies: No Known Allergies (Unverified , 03/20/25) Scheduled Gabapentin (Gabapentin), 1 CAP PO Q8H Past Medical History Past Medical History: *GI/HEPATOBILIARY*, Colon Cancer Past Surgical History: other Review of Systems ROS All review of systems negative except as per HPI Physical Exam Physical Exam Vital Signs: Temperature: 97.1, Source: Oral, Heart Rate: 89, Respiratory Rate: 18, BP: 131/80, Pulse Oximetry: 100, Weight: 70.000 Physical Exam General: Patient is awake, alert, oriented x4 in no acute distress and well appearing.~ Head: Normocephalic and atraumatic. Eyes: Conjunctival normal. EOMI. PERRL. ENT: Mucous membranes moist. Neck: Supple, trachea is midline. Chest: Clear to auscultation bilaterally without rales, rhonchi, or wheezes. There is no accessory muscle use or retractions. Cardiac: RRR without murmurs, gallops, or rubs. Abd: Soft, nondistended, nontender, with normoactive bowel sounds. No guarding, rebound, or rigidity. Urostomy noted Progress Results/Orders Results/Orders Vital Signs 03/20/25 04:28 Temp 97.1 Pulse 89 Resp 18 B/P (MAP) 131/80 Pulse Ox 100 Medical Decision Making Findings Patient here for medical supplies and this has been given to him Departure Disposition: 01 HOME / SELF CARE / HOMELESS Impression: Primary Impression: General medical exam Condition: Stable Discharge Instructions: General Discharge Instructions Referrals: NO PRIMARY CARE PROVIDER (PCP) Signature Scribe Signature: No scribe Attestation: The note accurately reflects work and decisions made by me.Pasquale Polo MD 03/20/25 04:49 PASQUALE POLO MD Mar 20, 2025 04:49
== END 2025-03-20 05:07 | disposition home or self-care (01) ==
LOC: ER 04:14
DX: Z00.00 Encounter for general adult medical examination without abnormal findings (principal); Z85.038 Personal history of other malignant neoplasm of large intestine; Z79.899 Other long term (current) drug therapy
CPT/HCPCS: 99281; 99282; A4398; A4421

== ENCOUNTER 2025-03-22 08:19 | Emergency (ER) | payer MEDICAID ==
[~2025-03-22] VITALS: Ht 172.7 cm; Wt 153.0 kg
[2025-03-22 08:23] VITALS: BP 116/81; PULSE 76; RESP 16; TEMP 98.6; O2SAT 99
--- NOTE | 2025-03-22 10:14 | Physician Documentation ---
History of Present Illness General Chief Complaint: See Chief Complaint Stated Complaint: SUPPLIES REQUEST Time Seen by MD: 09:06 OK to notify your PCP?: Yes Primary Medical Doctor: NONE Source: patient Mode of Arrival: POV Exam Limitations: no limitations History of Present Illness Initial Comments 54-year-old male who is here for a colostomy bag. He states that he got his last colostomy bag here he has only been wearing this colostomy bag for a few days. No abdominal pain, nausea, diarrhea, leaking or pain around colostomy bag . Medication Reconciliation Allergies: Coded Allergies: No Known Allergies (Unverified , 03/20/25) Scheduled Gabapentin (Gabapentin), 1 CAP PO Q8H Past Medical History Past Medical History: *GI/HEPATOBILIARY*, Colon Cancer Past Surgical History: other Review of Systems All Other Systems at this time: Reviewed and Negative Physical Exam Physical Exam Vital Signs: Temperature: 98.6, Source: Rectal, Heart Rate: 76, Respiratory Rate: 16, BP: 116/81, Pulse Oximetry: 99, Weight: 153.000 Oxygen Flow Rate: 0 Physical Exam General Appearance: Alert, WD/WN. NAD. HEENT: NCAT, PERRL, EOMI. Neck: Supple, trachea midline. Lungs: Breathing unlabored ABD: SOFT, ND, COLOSTOMY BAG IN PLACE, STOOL IN BAG, STOOL BROWN IN COLOR AND HAS ALMOST FILLED THE BAG UP. Extremities: Normal inspection. No edema. Skin: Warm/dry, normal color Neurological: Alert and oriented x4, normal gait. Psychiatric: Affect congruent with mood. Progress Results/Orders Results/Orders Vital Signs 03/22/25 08:23 Temp 98.6 Pulse 76 Resp 16 B/P (MAP) 116/81 Pulse Ox 99 O2 Flow Rate 0 Medical Decision Making Differential Diagnosis DDX: ECONOMIC REASONS FOR LACK OF SUPPLIES, COMMUNICATION ISSUES WITH PHARMACY AND PROVIDER, INSURANCE PROBLEMS Departure Time of Disposition: 10:11 Disposition: 01 HOME / SELF CARE / HOMELESS Impression: Primary Impression: Colostomy care Condition: Stable Discharge Instructions: General Discharge Instructions Additional Instructions: WE GAVE YOU A NEW COLOSTOMY BAG F/U WITH PCP ABOUT YOUR COLOSTOMY BAG SUPPLIES Referrals: NO PRIMARY CARE PROVIDER (PCP) Education Educated: Patient (YOU) Educated regarding: diagnosis, treatment, need for follow up Signature Scribe Signature: X Attestation: VANESSA ROJAS Mar 22, 2025 10:14
== END 2025-03-22 10:34 | disposition home or self-care (01) ==
LOC: ER 08:20
DX: Z43.3 Encounter for attention to colostomy (principal); Z85.038 Personal history of other malignant neoplasm of large intestine; Z79.899 Other long term (current) drug therapy
CPT/HCPCS: 99281; 99282; A4421

== ENCOUNTER 2025-05-10 03:44 | Emergency (ER) | payer MEDICAID ==
[~2025-05-10] VITALS: Ht 172.7 cm; Wt 72.7 kg
[2025-05-10 03:50] VITALS: BP 140/68; PULSE 68; RESP 16; TEMP 97.2; O2SAT 99
--- NOTE | 2025-05-10 04:18 | Physician Documentation ---
History of Present Illness General Chief Complaint: See Chief Complaint Stated Complaint: SUPPLY REQ Time Seen by MD: 04:15 Primary Medical Doctor: NONE History of Present Illness Initial Comments This is a 54-year-old gentleman who presents with a request for colostomy supplies. He states that he applied new bag several hours prior to arrival and it did not stick. He does not think that he loved his skin sufficient time to drive because he did not outside. Denies any other symptoms. He is getting new box of supplies from his sister in [facility] tomorrow. Medication Reconciliation Allergies: Coded Allergies: No Known Allergies (Unverified , 03/20/25) Scheduled Gabapentin (Gabapentin), 1 CAP PO Q8H Past Medical History Past Medical History: *GI/HEPATOBILIARY*, Colon Cancer Past Surgical History: other Review of Systems ROS 10 point review of systems was performed and unless noted above in HPI is negative for acute process/complaint. Physical Exam Physical Exam Vital Signs: Temperature: 97.2, Source: Temporal, Heart Rate: 68, Respiratory Rate: 16, BP: 140/68, Pulse Oximetry: 99, Weight: 72.700 Physical Exam Physical examination: GENERAL: Awake, alert, oriented, GCS 15, no apparent distress, non-toxic appearing, answers questions, follows commands appropriately. HEENT: Atraumatic, normocephalic, pupils equal, extraocular muscles intact Active gross movements, sclerae anicteric, mucus membranes moist, no stridor. NECK: Midline, no JVD CARDIOVASCULAR: Good skin perfusion without evidence of pallor, mottling. PULMONARY: Nonlabored, symmetric chest rise, no audible wheezing, no accessory muscle use, no respiratory distress, speaking in full sentences. GASTROINTESTINAL: Not distended. NEUROLOGIC: Lucid with normal mental status. Normal facial symmetry. Moves all extremities symmetrically and with purpose. No truncal ataxia. Speech is fluid without evidence of dysarthria or aphasia, no focal deficits appreciated. EXTREMITIES: Acute deformities Skin: warm, dry PSYCHIATRIC: Normal affect, normal insight, normal concentration. Focused exam: [] Progress Results/Orders Results/Orders Vital Signs 05/10/25 03:50 Temp 97.2 Pulse 68 Resp 16 B/P (MAP) 140/68 Pulse Ox 99 Medical Decision Making Additional information obtaine: old records Findings Facility Status: ED Holds, [facility] process The plan was discussed with the patient, who demonstrates clear understanding of the plan and is in agreement with the plan unless otherwise noted in the chart. All questions have been answered, all concerns were addressed unless otherwise documented. I was available throughout their ED stay for frequent reassessment and questions. Differential Diagnoses (considered and possible or likely): [Colostomy malfunction, colostomy supply need, history of colostomy] ??Differential Diagnoses (considered and unlikely, not requiring evaluation cur rently): [Denies any somatic complaints] MDM Data Please see [facility] for the following: Independent Historians and external Records Review. Historian: [Patient] Independent Historians: ?[Record review] Medication Management: [Reviewed medication list] Social History and determinants: [Reviewed] Please see the body of the note for the following: Any independent interpretations of ECG, imaging studies. All vitals signs/haemodynamics, ordered tests were independently reviewed and interpreted by myself. Nursing triage complaint and vitals reviewed, additional nursing notes were reviewed as available and I agree unless otherwise noted or documented in contradiction in the chart Vital Signs: Independently reviewed Labs: Independently interpreted Imaging: Independently interpreted Old Medical Records: Independently reviewed, see [facility] for relevant summary and information Additionally notably showing: [Hemodynamically stable] Tests considered but not ordered include: [Hematologic workup and imaging has been considered but does not appear to be necessary given clinical nature of diagnosis] Social Determinants of Health Impact: Patient was evaluated in [facility] [place] to healthcare due to below par ratio of patient to medical providers. [] Comorbid Conditions Impacting Present Evaluation and Care/Treatment: [History of colostomy] Management Discussions with other Healthcare Providers: [None] Treatment and Disposition Medication Management (Given or considered): []. See EMR for details Consideration for Hospitalization/Escalation/Deescalation of Care: Admission for observation has been considered, [however the patient is able to tolerate p.o., their symptoms are controlled, they are able to rely on oral medications, and their chief complaint/diagnosis can be managed on outpatient basis.] ?ED Course:?[Colostomy supplies were provided] ?Shared decision making:?[Patient is hemodynamically stable for discharge home with follow with their primary care provider. [ ] Specific and cautious return precautions provided and discussed with full understanding. Any incidental findings were also discussed and follow up recommendations given. [] All questions answered. Patient/family were able to verbalize back return precautions. Patient/family agree to plan. Copies of imaging and laboratory studies were provided.] Code status:?FULL Please see the full Electronic Medical Record for full details of nursing docu mentation, medications list, other records of complete past medical history and conditions, vital signs, laboratory studies, and any radiologic study interpretations by radiologists. Portions of this note were completed using [employer] dictation software and as a result there may exist minor errors in spelling. I have reviewed elements of past family and social history and agree as included in note. Differential Diagnosis See body of the note for differential diagnosis Departure Disposition: 01 HOME / SELF CARE / HOMELESS Impression: Primary Impression: Colostomy care Condition: Improved Discharge Instructions: Colostomy Home Guide, Adult Referrals: NO PRIMARY CARE PROVIDER (PCP) Education Educated: Patient Educated regarding: diagnosis, treatment, prognosis, need for follow up Signature Scribe Signature: No scribe Attestation: Date: May 10, 2025 Time: 04:18 This note accurately reflects clinical decisions, work performed by myself, DO ALL Gaytan NICHOLAS M DO May 10, 2025 04:18
== END 2025-05-10 04:21 | disposition home or self-care (01) ==
LOC: ER 03:44
DX: Z43.3 Encounter for attention to colostomy (principal); Z85.038 Personal history of other malignant neoplasm of large intestine; Z79.899 Other long term (current) drug therapy
CPT/HCPCS: 99282; A4398; A4415